=== PATIENT | female | born 1960 | race Caucasian/White ===

== ENCOUNTER 2017-09-10 19:18 | Emergency (ER) | payer BC, SELFPAY | END 2017-09-10 19:56 | disposition home or self-care (01) | PROVIDERS: Emergency Provider Nurse Practitioner; Visit Provider Nurse Practitioner | DX: A08.4 Viral intestinal infection, unspecified (principal); Z88.7 Allergy status to serum and vaccine | CPT/HCPCS: 87804; 99201 ==

== ENCOUNTER → 2019-06-24 13:28 | Outpatient (CLI) | payer BC, SELFPAY ==
--- NOTE | 2019-06-24 13:33 | MM_ITS ---
PROCEDURE: MM DIG MAMM BI DX W/CAD CLINICAL INDICATION: Dx [facility] Mammogram- abnormal mamm Palpable area left breast. Open sore under left breast. COMPARISON: US BREAST LT COMPLETE from 06/24/2019 US BREAST RT COMPLETE from 06/24/2019 TECHNIQUE: Standard images performed of both breasts along with bilateral spot compression views and bilateral breast ultrasound FINDINGS: There is average fibroglandular tissue. Right breast: The nipple is inverted. A band of density is noted extending from the central aspect of the right breast to the nipple with nipple inversion. There spot-compression views which obtained of this area and targeted ultrasound. There is no discrete mass evident and no sonographic abnormalities detected in the retroareolar region. There are some indeterminate clustered calcifications in the central aspect of the right breast slightly inferior. Biopsy of these is suggested as well as biopsy of the central area contiguous with the band of density connected to the nipple. Small nodes are present in the right axilla. Right breast ultrasound: No sonographic abnormalities detected in the region of the nipple inversion. Left breast: There is a spiculated mass the corresponding to the palpable abnormality in the 3 o'clock region of the left breast. This measures 2.7 x 2.4 by 2.7 cm and is highly suspicious for malignancy. In addition, there is a 12 mm nodule just superior to this larger lesion. This is well-circumscribed. This nodule is at the 1 o'clock position. There are suspicious calcifications in the superior aspect of the left breast just superior and anterior to the A4 mentioned nodule. There are rounded densities in the left axilla 1 which show some spiculations suspicious for neoplastic involvement of lymph nodes. This area measures 8 mm. Left breast ultrasound: In the floor o'clock region of the left breast there is a solid 2 x 2 cm mass just beneath the skin with hyper blood flow. This is isoechoic with some limited transmission of sound. In addition there is a 13 x 10 mm hypoechoic nodule at 12 o'clock corresponding to the rounded mammographic abnormality. This is round but show some decreased through transmission of sound and does not appear to represent a cyst. Biopsy of this nodule is suggested as well as the larger suspicious nodule. This is at 12 o'clock. This highly suspicious masses at 4 o'clock. IMPRESSION: On the left there is a highly suspicious mass at 4 o'clock at 2.7 cm very near the skin surface. Biopsy suggested. In addition, there is a 12 mm solid-appearing nodule at 12 o'clock. This could represent an intramammary lymph node with neoplastic involvement or 2nd neoplasm. In addition, there are suspicious calcifications in the 12 o'clock region of the left breast. There is also nipple retraction on the right with suspicious calcifications on the right. Biopsy recommended. BI-RAD Category: 5 Highly Suggestive Of Malignancy FOLLOW-UP: BIO Biopsy Recommended (A letter has been sent to the patient regarding results of the study.) Dictated by: Jaden Fry MD 06/26/2019 20:59 Electronically signed by Jaden Fry MD in [place] 06/26/2019 20:59
== END ==
PROVIDERS: PCP Nurse Practitioner Obstetrics & Gynecology; Visit Provider Nurse Practitioner Obstetrics & Gynecology
DX: R92.8 Other abnormal and inconclusive findings on diagnostic imaging of breast (principal); N63.20 Unspecified lump in the left breast, unspecified quadrant
CPT/HCPCS: 76641; 77066

== ENCOUNTER 2019-11-26 15:00 | Observation (INO) ==
--- NOTE | 2019-11-26 15:32 | Emergency Department Note ---
ED Disposition Clinical Impression: Dehydration, Severe sepsis, Hyponatremia, Intractable nausea and vomiting, Drug-induced nausea and vomiting, Status post chemotherapy Neutropenia Qualifiers: Neutropenia type: secondary to cancer chemotherapy Qualified Code(s): D70.1 - Agranulocytosis secondary to cancer chemotherapy; T45.1X5A - Adverse effect of antineoplastic and immunosuppressive drugs, initial encounter Leukopenia Qualifiers: Leukopenia type: neutropenia Neutropenia type: secondary to cancer chemotherapy Qualified Code(s): D70.1 - Agranulocytosis secondary to cancer chemotherapy; T45.1X5A - Adverse effect of antineoplastic and immunosuppressive drugs, initial encounter Disposition: Admitted As Inpatient Condition on Discharge: Fair Additional Instructions: Discussed with the DONALD Arias with Dr. Billings, regarding the patient and planned to get the patient admitted to the floor for leukopenia/neutropenia/severe sepsis with electrolyte imbalance due to persistent intractable nausea vomiting status post chemo. Referrals: Gregorio Billings MD [Primary Care Provider] - Time of Disposition: 17:19 - Critical Care Critical Care Time: Yes Attestation: On 11/26/19, the high probability of a clinically significant, sudden or life threatening deterioration of the following system(s) required my full and direct attention, intervention and personal management. The time I documented below is in addition to time spent performing reported procedures but includes the following listed in this critical care notation. Total Critical Care Time: 30 Vital system(s) involved:: Metabolic Failure, Renal Failure, Shock (Septic) My critical care processes included: Assessment & monitoring of V/S, Initial and Re-exams, Data Review/Interpretation, Coordinating Care, Medication Orders and management, Documentation Medical Decision Making - Wilmer Inquiry Pt receiving controlled substance: Yes Wilmer was queried for this patient: No Risks and benefits of using a controlled substance: were not discussed with pt by me Vital Signs: 11/26/19 15:14 Temperature 98.2 F Temperature Source Oral Pulse Rate [Left Radial] 139 H Respiratory Rate 18 Blood Pressure [Right Arm] 103/63 L Blood Pressure Mean [Right Arm] 76 Blood Pressure Position [Right Arm] Sitting 02 Sat by Pulse Oximetry 99 Oxygen Delivery Method Room Air - Lab Data Lab results reviewed: Yes: I reviewed the patient's lab results. Lab Results 11/26/19 15:30: WBC 1.5 L*, RBC 4.26, Hgb 12.4, Hct 35.9 L, MCV 84.1, MCH 29.1, MCHC 34.6, RDW 12.6, Plt Count 239, MPV 8.5, Neut % (Auto) 15.3 L, Lymph % (Auto) 55.9 H, [place] % (Auto) 26.8 H, Eos % (Auto) 0.2, Baso % (Auto) 1.7, Neut # (Auto) 0.2 L*, Lymph # (Auto) 0.8, [place] # (Auto) 0.4, Eos # (Auto) 0.0, Baso # (Auto) 0.0, Total Counted 100, Neutrophils % (Manual) 14 L, Lymphocytes % (Manual) 58 H, Atypical Lymphs % 10.0, Monocytes % (Manual) 18 H, Platelet Estimate Normal, RBC Morphology Normal 11/26/19 15:30: Sodium 128 L, Potassium 4.3, Chloride 93 L, Carbon Dioxide 23, Anion Gap 16.3 H, BUN 25 H, Creatinine 1.40 H, Estimated Creat Clear 45, Estimated GFR 38 L, Est GFR ( Amer) 46 L, Glucose 156 H, Calcium 9.1, Tot al Bilirubin 1.4 H, AST 29, ALT 52, Alkaline Phosphatase 93, Troponin I < 0.01, Total Protein 6.8, Albumin 3.8, Globulin 3.0, Albumin/Globulin Ratio 1.3 11/26/19 15:30: Urine Color Dk yellow, Urine Appearance Sl cloudy, Urine pH 5.0, Ur Specific [place] >= 1.030, Urine Protein 1+, Urine Glucose (UA) Negative, Urine Ketones Negative, Urine Blood Trace-i, Urine Nitrate Positive, Urine Bilirubin Negative, Urine Urobilinogen 0.2, Ur Leukocyte Esterase Negative, U rine RBC 3-5, Urine WBC 3-5, Ur Squamous Epith Cells 3-5, Ur Transition Epith Cell 3-5, Amorphous Sediment 2+, Urine Bacteria 1+, Hyaline Casts 3-5 11/26/19 15:30: Lactate 1.7 Result diagrams: 11/26/19 15:30 11/26/19 15:30 Orders (Tests/Meds): ED MEDICATIONS Generic Name Dose Route Start Last Admin Trade Name Freq PRN Reason Stop Dose Admin Sodium Chloride 1,000 mls @ 999 mls/hr 11/26/19 15:30 11/26/19 15:46 Sod Chlor 0.9% 1000ml Bag IV 11/26/19 16:30 999 mls/hr .Q1H1M MEME Administration Discontinued Medications Generic Name Dose Route Start Last Admin Trade Name Freq PRN Reason Stop Dose Admin Ondansetron HCl 4 mg 11/26/19 15:19 11/26/19 15:46 Zofran 4mg/2ml Vial IV 11/26/19 15:20 4 mg ONCE ONE Administration ORDERS Category Date Time Status XR abdomen min 2V Stat Exams 11/26/19 15:44 Taken Diarrhea 23 Panel, PCR Stat Lab 11/26/19 15:19 Ordered Troponin I Q3H Lab 11/26/19 19:00 Ordered Troponin I Q3H Lab 11/26/19 22:00 Ordered Blood Culture Stat Micro 11/26/19 15:35 Received - ECG Data Tracing #1 Sinus tachycardia with a heart rate of 127 bpm, normal P waves, normal [place] interval, nonspecific ST-T changes. - Physician Consults Physician Consulted: Dr. Billings/Juana Time: 17:10 Reason -: Admission Comment/Response: Discussed with the DONALD Arias with Dr. Billings, regarding the patient and planned to get the patient admitted to the floor for leuk openia/neutropenia/severe sepsis with electrolyte imbalance due to persistent intractable nausea vomiting status post chemo. - Reevaluation(s) Time: 17:15 Reevaluation #1: Patient has been stable throughout the course of stay in the ER. Plan to admit the patient to the floor for neutropenia/leukopenia/severe sepsis/electrolyte imbalance due to chemo. General Adult HPI - General Chief complaint: Nausea/Vomiting/Diarrhea Stated complaint: chemo treatment and feels bad. told her come t Time Seen by Provider: 11/26/19 15:32 Mode of Arrival: Ambulatory Limitations: No Limitations Description of Symptoms (Recalled from ER Triage Doc. by RN): TO ED PER [facility] CAR WITH C/O NAUSEA, VOMITING, DIARRHEA, ABD CRAMPING STARTING SATURDAY 11/18 AFTER RECEIVING CHEMO. PT WITH HX OF BREAST CA. THIS WAS PT'S FIRST CHEMO TX. PT DENIES FEVER, CHILLS. - History of Present Illness HPI narrative: 59-year-old female presents to the emergency department with chief complaint of having intractable nausea vomiting for the last 5 to 6 days. She states she has bilateral breast cancer and had recently had breast surgery done for the same. She has been on chemotherapy which she started on the of this month that is about 8 days ago. She received her first chemo 8 days ago and from the third day onwards she has been having nausea vomiting due to the same. She states she has been persistently vomiting for the last 4 to 5 days. It has made her weak and tired. Has not been able to keep anything down much. She vomited twice today and feels weak. No blood in the vomitus. Denies having any fever or chills. - Related Data Home Medications Medication Instructions Recorded Confirmed anastrozole 1 mg tablet mg PO DAILY tab 09/14/19 09/14/19 Previous Rx's Medication Instructions Recorded lisinopril 10 mg tablet 10 mg PO DAILY #90 tab 09/14/19 Allergies Allergy/AdvReac Type Severity Reaction Status Date / Time tetanus and diphtheria Allergy Unknown Verified 09/14/19 09:26 toxoids [TETANUS AND DIPHTHERIA TOXOIDS] [facility] History - Hepatitis A Screen Drug use history?: No High risk sexual behaviors?: No History of sexually transmitted infection?: No Currently employed?: No Childcare worker?: No Do you have indoor plumbing?: Yes Do you have electricity?: Yes Attestation statement:: This patient has been screened for Hepatitis A risk factors. I have reviewed the patient's past medical history: Yes Other Surgeries: Yes: Other Amputation: No Fractures: No Comment: full mouth extractions - Social History Smoking Status: Never smoker Alcohol Intake: never Substance Use Type: denies use Occupational Status: other Family Hx:: Cancer (mother had ovarian cancer) ROS Obtained: Yes All systems reviewed & no additional complaints Physical Exam - General General appearance: alert, in no apparent distress - Head Head exam: atraumatic, normocephalic, normal inspection - Eye Eye exam: Present: normal appearance, PERRL, EOMI - ENT ENT exam: Present: normal exam, normal oropharynx, mucous membranes moist, normal external ear exam - Neck Neck exam: Present: normal inspection, full ROM, trachea midline - Chest Chest inspection: Present: normal inspection, symmetric chest wall rise. Absent: tenderness - Respiratory Respiratory exam: Present: normal lung sounds bilaterally. Absent: respiratory distress - Cardiovascular Cardiovascular exam: Present: regular rate, normal rhythm. Absent: JVD - Abdominal Exam Abdominal exam: Present: soft, normal bowel sounds, other (Mild degree of questionable fecal matter palpable throughout the abdomen.). Absent: distention, tenderness, guarding - Extremities Exam Extremities exam: Present: normal inspection, full ROM, normal capillary refill. Absent: calf tenderness - Back Exam Back exam: Present: normal inspection. Absent: tenderness - Neurological Exam Neurological exam: Present: alert, oriented X3, CN II-XII intact - Psychiatric Psychiatric exam: Present: normal affect, normal mood - Skin Skin exam: Present: warm, dry, intact, normal color
[2019-11-26 15:39] LABS: Appearance,Urine SL CLOUDY (Clear); Blood, Urine TRACE-I (Negative); Color,Urine DK YELLOW (Yellow); Glucose,Urine (UA) Negative (Negative); Ketones,Urine Negative (Negative); Leukocyte Esterase,Urine Negative (Negative); Microscopic, Urine URINE MICROSCOPIC (MICROSCOPIC); Protein,Urine 1+ (Negative); Specific Gravity, Urine >= 1.030 (1.005-1.030); Urobilinogen,Urine 0.2 EU/dl (0.2)
[2019-11-26 15:44] LABS: Bilirubin,Urine Negative (Negative)
[2019-11-26 15:50] LABS: Chloride 93 mmol/L (98-107); Sodium 128 mmol/L (136-145)
[2019-11-26 15:52] LABS: Amorphous Sediment,Urine 2+ /lpf; Bacteria,Urine 1+ /lpf; Basophils % 1.7 % (0.1-2.0); Eosinophils % 0.2 % (0.1-12.0); Hematocrit 35.9 % (37.0-47.0); Hemoglobin 12.4 g/dL (12.2-16.2); Lymphocytes # 0.8 K/mm3 (0.7-4.5); Lymphocytes % 55.9 % (10-50); Mean Corpuscular HGB Conc 34.6 g/dL (31.8-35.4); Mean Corpuscular Volume 84.1 fl (81-99); Mean Platelet Volume 8.5 fl (7.4-10.4); Monocytes # 0.4 K/mm3 (0.1-1.0); Monocytes % 26.8 % (1.7-9.3); Neutrophils # 0.2 K/mm3 (1.8-7.8); Neutrophils % 15.3 % (37.0-80.0); Platelet Count 239 K/mm3 (142-424); Red Blood Count 4.26 M/mm3 (4.20-5.40); Red Cell Distribution Width 12.6 % (11.5-17.5)
[2019-11-26 15:53] LABS: Alanine Aminotransferase 52 U/L (12-78); Albumin Level 3.8 g/dl (3.5-5.0); Albumin/Globulin Ratio 1.3 (1.1-1.8); Alkaline Phosphatase 93 U/L (38-126); Anion Gap 16.3 mEq/L (5-15); Aspartate Amino Transferase 29 U/L (14-36); Bilirubin,Total 1.4 mg/dl (0.2-1.3); Blood Urea Nitrogen 25 mg/dl (7-17); Carbon Dioxide 23 mmol/L (22.0-30.0); Total Protein,Serum 6.8 g/dl (6.3-8.2)
[2019-11-26 15:54] LABS: Calcium 9.1 mg/dl (8.4-10.2); Glucose 156 mg/dl (74-100); White Blood Count 1.5 K/mm3 (4.8-10.8)
[2019-11-26 16:10] LABS: Lymphocytes % 58 % (10-50); Monocytes % 18 % (2-9); Neutrophils % 14 % (42-76); RBC Morphology Normal; Total Cells Counted 100
--- NOTE | 2019-11-26 17:35 | History & Physical Report ---
*Admission Date: 11/26/19 *Chief complaint: uti *History of present illness: 59-year-old female presents to the emergency department with chief complaint of having intractable nausea vomiting for the last 5 to 6 days. 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 She has been on chemotherapy which she started on the of this month that is about 8 days ago. She received her first chemo 8 days ago and from the third day onwards she has been having nausea vomiting due to the same. She states she has been persistently vomiting for the last 4 to 5 days. Pt admitted for uti, low wbc and sepsis [facility] History I have reviewed the patient's past medical history: Yes *Have you ever received a pneumonia vaccine?: No *Have you received a flu vaccine this season?: No Other Surgeries: Yes: Other Amputation: No Fractures: No - *Social History Smoking Status: Never smoker Alcohol Intake: never Substance Use Type: denies use *Occupational Status:: other *Travel in the last 8 weeks: None Family Hx:: Cancer (mother had ovarian cancer) Review of Systems - Constitutional Reports body ache(s), Reports chills, Reports fatigue, Reports fever(s) - Eyes Denies itchy eyes - ENT Denies sinus pressure - *Cardiovascular Denies chest pain with activity - *Respiratory Denies shortness of breath - *Gastrointestinal Denies heartburn - *Genitourinary Denies absent period - *Musculoskeletal Denies muscle cramps - Integumentary/Breasts Denies unusual bruising, Denies wounds - *Neurologic Denies abnormal movements - Psychiatric Denies anxiety - Endocrine Denies flushing - Hematologic/Lymphatic Denies enlarged lymph nodes - Allergic/Immunologic Denies lip swelling Meds Home Medications Medication Instructions Recorded Confirmed Type anastrozole 1 mg tablet 1 mg PO DAILY tab 09/14/19 11/26/19 History lisinopriL [Prinivil 10mg Tablet] 10 mg PO DAILY 11/26/19 11/26/19 History Allergies Allergy/AdvReac Type Severity Reaction Status Date / Time tetanus and diphtheria Allergy Unknown Verified 09/14/19 09:26 toxoids [TETANUS AND DIPHTHERIA TOXOIDS] Exam Vital signs and Labs for Last 24 Hours: Temp Pulse Resp BP Pulse Ox 98.2 F 139 H 18 103/63 L 99 11/26/19 15:14 11/26/19 15:14 11/26/19 15:14 11/26/19 15:14 11/26/19 15:14 Laboratory Results - last 24 hr 11/26/19 15:30: WBC 1.5 L*, RBC 4.26, Hgb 12.4, Hct 35.9 L, MCV 84.1, MCH 29.1, MCHC 34.6, RDW 12.6, Plt Count 239, MPV 8.5, Neut % (Auto) 15.3 L, Lymph % (Auto) 55.9 H, [place] % (Auto) 26.8 H, Eos % (Auto) 0.2, Baso % (Auto) 1.7, Neut # (Auto) 0.2 L*, Lymph # (Auto) 0.8, [place] # (Auto) 0.4, Eos # (Auto) 0.0, Baso # (Auto) 0.0, Total Counted 100, Neutrophils % (Manual) 14 L, Lymphocytes % (Manual) 58 H, Atypical Lymphs % 10.0, Monocytes % (Manual) 18 H, Platelet Estimate Normal, RBC Morphology Normal 11/26/19 15:30: Sodium 128 L, Potassium 4.3, Chloride 93 L, Carbon Dioxide 23, Anion Gap 16.3 H, BUN 25 H, Creatinine 1.40 H, Estimated Creat Clear 45, Estimated GFR 38 L, Est GFR ( Amer) 46 L, Glucose 156 H, Calcium 9.1, Total Bilirubin 1.4 H, AST 29, ALT 52, Alkaline Phosphatase 93, Troponin I < 0.01, Total Protein 6.8, Albumin 3.8, Globulin 3.0, Albumin/Globulin Ratio 1.3 11/26/19 15:30: Urine Color Dk yellow, Urine Appearance Sl cloudy, Urine pH 5.0, Ur Specific [place] >= 1.030, Urine Protein 1+, Urine Glucose (UA) Negative, Urine Ketones Negative, Urine Blood Trace-i, Urine Nitrate Positive, Urine Bilirubin Negative, Urine Urobilinogen 0.2, Ur Leukocyte Esterase Negative, Urine RBC 3-5, Urine WBC 3-5, Ur Squamous Epith Cells 3-5, Ur Transition Epith Cell 3-5, Amorphous Sediment 2+, Urine Bacteria 1+, Hyaline Casts 3-5 11/26/19 15:30: Lactate 1.7 I & O for Last 24 hours: Intake & Output 11/24/19 11/25/19 11/26/19 11/27/19 11:59 11:59 11:59 11:59 Weight 150 lb - *Routine HEENT Exam Head: Present: normocephalic Eye: Present: PERRL ENT: Present: mucous membranes moist - *Routine Neck Exam Present: supple. Absent: lymphadenopathy - Routine Chest/Breast/Axilla Exam Comments: carlito masectomy healing incisions - *Routine Respiratory Exam Present: CTA bilaterally - *Routine Cardiovascular Exam Present: RRR - *Routine Abdominal Exam Present: soft, normoactive bowel sounds. Absent: tenderness - *Routine Extremities Exam Absent: cyanosis, clubbing, edema - *Routine Skin Exam Present: warm. Absent: rash - *Routine Neurological Exam Present: alert, oriented X3 Assessment and Plan (1) Dehydration Current visit: Yes Status: Acute Category: Medical Code(s): E86.0 - Dehydration (2) Drug-induced nausea and vomiting Current visit: Yes Status: Acute Category: Medical Code(s): R11.2 - Nausea with vomiting, unspecified; T50.905A - Adverse effect of unspecified drugs, medicaments and biological substances, initial encounter (3) Leukopenia Current visit: Yes Status: Acute Qualifiers: Leukopenia type: neutropenia Neutropenia type: secondary to cancer chemotherapy Qualified Code(s): D70.1 - Agranulocytosis secondary to cancer chemotherapy; T45.1X5A - Adverse effect of antineoplastic and immunosuppressive drugs, initial encounter Category: Medical Code(s): D72.819 - Decreased white blood cell count, unspecified (4) Status post chemotherapy Current visit: Yes Status: Acute Category: Surgical Code(s): Z92.21 - Personal history of antineoplastic chemotherapy (5) Breast cancer, left breast Current visit: No Status: Chronic Qualifiers: Breast location: unspecified site of breast Estrogen receptor status: unspecified Patient sex: female Qualified Code(s): C50.912 - Malignant neoplasm of unspecified site of left female breast Category: Medical Code(s): C50.912 - Malignant neoplasm of unspecified site of left female breast (6) UTI (urinary tract infection) Current visit: Yes Status: Acute Category: Medical Code(s): N39.0 - Urinary tract infection, site not specified - Assessment and plan all Dx Assessment and Plan for all problems:: Dr samuels will round later today all orders per abril
--- NOTE | 2019-11-26 19:05 | Electrocardiograph Report ---
APPROVED REPORT Exam: Resting ECG HR:127 bpm ECG Measurements Heart Rate 127 AXES NE 138 P 50 QRSd 110 QRS 92 QT 324 T25 QTc 470 <Conclusion> Sinus tachycardia Rightward axis Borderline ECG Electronically signed by : Adam Ray, 11/26/2019 19:05:09
[2019-11-27 05:54] LABS: Eosinophils % 0.6 % (0.1-12.0); Lymphocytes # 0.7 K/mm3 (0.7-4.5); Mean Corpuscular HGB Conc 34.3 g/dL (31.8-35.4); Mean Corpuscular Volume 85.2 fl (81-99); Mean Platelet Volume 8.1 fl (7.4-10.4); Monocytes # 0.4 K/mm3 (0.1-1.0); Monocytes % 26.6 % (1.7-9.3); Neutrophils # 0.4 K/mm3 (1.8-7.8); Neutrophils % 26.8 % (37.0-80.0); Platelet Count 210 K/mm3 (142-424); Red Blood Count 3.41 M/mm3 (4.20-5.40); Red Cell Distribution Width 12.9 % (11.5-17.5)
[2019-11-27 05:55] LABS: Hematocrit 29.1 % (37.0-47.0); White Blood Count 1.5 K/mm3 (4.8-10.8)
[2019-11-27 06:10] LABS: Anion Gap 11.7 mEq/L (5-15)
[2019-11-27 06:11] LABS: Calcium 7.9 mg/dl (8.4-10.2)
[2019-11-27 06:19] LABS: Lymphocytes % 86 % (10-50); Monocytes % 8 % (2-9); RBC Morphology Normal; Rouleaux 2+; Total Cells Counted 50
--- NOTE | 2019-11-27 08:47 | Progress Note ---
Internal Medicine - PN: Subj *Date: 11/28/19 *Time: 06:45 Interval history: doing better -still with low wbc - cultures pending Exam Vital signs and Labs for Last 24 Hours: Temp Pulse Resp BP Pulse Ox 98.1 F 105 H 18 151/70 H 98 11/27/19 07:56 11/27/19 07:56 11/27/19 07:56 11/27/19 07:56 11/27/19 07:56 Laboratory Results - last 24 hr 11/26/19 15:30: WBC 1.5 L*, RBC 4.26, Hgb 12.4, Hct 35.9 L, MCV 84.1, MCH 29.1, MCHC 34.6, RDW 12.6, Plt Count 239, MPV 8.5, Neut % (Auto) 15.3 L, Lymph % (Auto) 55.9 H, [place] % (Auto) 26.8 H, Eos % (Auto) 0.2, Baso % (Auto) 1.7, Neut # (Auto) 0.2 L*, Lymph # (Auto) 0.8, [place] # (Auto) 0.4, Eos # (Auto) 0.0, Baso # (Auto) 0.0, Total Counted 100, Neutrophils % (Manual) 14 L, Lymphocytes % (Manual) 58 H, Atypical Lymphs % 10.0, Monocytes % (Manual) 18 H, Platelet E stimate Normal, RBC Morphology Normal 11/26/19 15:30: Sodium 128 L, Potassium 4.3, Chloride 93 L, Carbon Dioxide 23, Anion Gap 16.3 H, BUN 25 H, Creatinine 1.40 H, Estimated Creat Clear 45, Estimated GFR 38 L, Est GFR ( Amer) 46 L, Glucose 156 H, Calcium 9.1, Total Bilirubin 1.4 H, AST 29, ALT 52, Alkaline Phosphatase 93, Troponin I < 0.01, Total Protein 6.8, Albumin 3.8, Globulin 3.0, Albumin/Globulin Ratio 1.3 11/26/19 15:30: Urine Color Dk yellow, Urine Appearance Sl cloudy, Urine pH 5.0, Ur Specific [place] >= 1.030, Urine Protein 1+, Urine Glucose (UA) Negative, Urine Ketones Negative, Urine Blood Trace-i, Urine Nitrate Positive, Urine Bilirubin Negative, Urine Urobilinogen 0.2, Ur Leukocyte Esterase Negative, Urine RBC 3-5, Urine WBC 3-5, Ur Squamous Epith Cells 3-5, Ur Transition Epith Cell 3-5, Amorphous Sediment 2+, Urine Bacteria 1+, Hyaline Casts 3-5 11/26/19 15:30: Lactate 1.7 11/26/19 21:12: Stl Aeromonas (PCR) Not detected, Stl C. cayetanensis PCR Not detected, Stool Rotavirus (PCR) Not detected, Stl Adenov F 40/41 PCR Not detected, Stool Astrovirus (PCR) Not detected, Stool Campylobacter PCR Not detected, Stl C.difficile Tox PCR Not detected, Stool Cryptosporidium PCR Not detected, Stl E.coli Shiga Tox PCR Not detected, Stool E coli O157 PCR Not detected, Stl Enterotoxigenic E PCR Not detected, Stool EPEC (PCR) Not detected, Stool EAEC (PCR) Not detected, Stl E. histolytica PCR Not detected, Stool Giardia Lamblia PCR Not detected, Stool Salmonella PCR Not detected, Stool Sapovirus (PCR) Not detected, Stl P. shigelloides PCR Not detected, Stl Shigella/EIEC PCR Not detected, St Y.enterocolitica PCR Not detected, Stool Vibrio (PCR) Not detected, Stl Vibrio cholerae PCR Not detected, Stl Norovirus GI/GII PCR Not detected 11/27/19 05:35: WBC 1.5 L*, RBC 3.41 L, Hgb 10.0 L D, Hct 29.1 L, MCV 85.2, MCH 29.2, MCHC 34.3, RDW 12.9, Plt Count 210, MPV 8.1, Neut % (Auto) 26.8 L, Lymph % (Auto) 46.0, [place] % (Auto) 26.6 H, Eos % (Auto) 0.6, Baso % (Auto) 0.0 L, Neut # (Auto) 0.4 L*, Lymph # (Auto) 0.7, [place] # (Auto) 0.4, Eos # (Auto) 0.0, Baso # (Auto) 0.0, Total Counted 50, Band Neutrophils % 6.0, Lymphocytes % (Manual) 86 H, Monocytes % (Manual) 8, Platelet Estimate Normal, RBC Morphology Normal, Rouleaux 2+ 11/27/19 05:35: Sodium 129 L, Potassium 3.7, Chloride 101, Carbon Dioxide 20 L, Anion Gap 11.7, BUN 21 H, Creatinine 0.90 D, Estimated Creat Clear 69, Estimated GFR 64, Est GFR ( Amer) 77 D, Glucose 119 H D, Calcium 7.9 L D I & O for Last 24 hours: Intake & Output 11/24/19 11/25/19 11/26/19 11/27/19 11:59 11:59 11:59 11:59 Intake Total 2296 / 229 Output Total 200 / 200 Balance 2095 Weight 162 lb 4 oz - Constitutional no acute distress - *Routine HEENT Exam Head: Present: normocephalic Eye: Present: EOMI, PERRL. Absent: conjunctival icterus ENT: Present: mucous membranes dry - *Routine Neck Exam Present: supple. Absent: JVD - *Routine Respiratory Exam Present: CTA bilaterally - *Routine Cardiovascular Exam Present: RRR. Absent: murmur - *Routine Abdominal Exam Present: soft - *Routine Extremities Exam Absent: calf tenderness - *Routine Skin Exam Present: intact - *Routine Neurological Exam Present: alert, oriented X3, CN II-XII intact - Routine Psychiatric Exam Present: normal affect Assessment and Plan (1) Neutropenia Current visit: Yes Status: Acute Qualifiers: Neutropenia type: secondary to cancer chemotherapy Qualified Code(s): D70.1 - Agranulocytosis secondary to cancer chemotherapy; T45.1X5A - Adverse effect of antineoplastic and immunosuppressive drugs, initial encounter Category: Medical Code(s): D70.9 - Neutropenia, unspecified
--- NOTE | 2019-11-27 08:50 | Pharmacy Consult Notes ---
[facility] Pharmacy VTE Monitoring - Patient Demographics Admission date: 11/26/19 Report Date: 11/27/19 Time: 08:50 Allergies/Adverse Reactions: Patient Allergies tetanus and diphtheria toxoids [TETANUS AND DIPHTHERIA TOXOIDS] Allergy (Unknown, Verified 09/14/19 09:26) Height: 1.65 m Weight: 73.595 kg Patient Problems: Current Active Problems Dehydration (Acute) Severe sepsis (Acute) Neutropenia (Acute) Leukopenia (Acute) Hyponatremia (Acute) Intractable nausea and vomiting (Acute) Drug-induced nausea and vomiting (Acute) Status post chemotherapy (Acute) - VTE Risk Labs: VTE Related Lab Results Hgb 10.0 g/dL (12.2-16.2) L D 11/27/19 05:35 Hct 29.1 % (37.0-47.0) L 11/27/19 05:35 Plt Count 210 K/mm3 (142-424) 11/27/19 05:35 BUN 21 mg/dl (7-17) H 11/27/19 05:35 Creatinine 0.90 mg/dl (0.52-1.04) D 11/27/19 05:35 Estimated Creat Clear 69 mL/min (50-200) 11/27/19 05:35 Was VTE Risk Assessment Performed: Yes VTE Score: 2 VTE Risk Level: Very Low Risk - Prophylaxis VTE Prophylaxis Ordered?: Yes Types of VTE Prophylaxis: TEDS Knee High Location of Applied Device: Bilateral Lower Extremeties
[2019-11-28 08:36] LABS: Basophils % 0.4 % (0.1-2.0); Eosinophils % 0.2 % (0.1-12.0); Mean Corpuscular HGB Conc 33.2 g/dL (31.8-35.4); Mean Corpuscular Volume 85.6 fl (81-99); Mean Platelet Volume 7.7 fl (7.4-10.4); Monocytes # 0.2 K/mm3 (0.1-1.0); Monocytes % 5.7 % (1.7-9.3); Neutrophils # 1.7 K/mm3 (1.8-7.8); Neutrophils % 57.8 % (37.0-80.0); Platelet Count 245 K/mm3 (142-424); Red Cell Distribution Width 12.7 % (11.5-17.5); White Blood Count 2.9 K/mm3 (4.8-10.8)
--- NOTE | 2019-11-28 08:58 | Progress Note ---
Internal Medicine - PN: Subj *Date: 11/28/19 *Time: 08:55 Interval history: pt sitting up in bed states she is feeling better. pt states at 2 am she was seeing clowns and she got out of bed. Pt states she is feeling better now and she does not see clowns now. Exam Vital signs and Labs for Last 24 Hours: Temp Pulse Resp BP Pulse Ox 97.5 F L 91 H 18 141/70 H 100 11/28/19 08:00 11/28/19 08:00 11/28/19 08:00 11/28/19 08:00 11/28/19 08:00 Laboratory Results - last 24 hr 11/28/19 08:26: WBC 2.9 L D, RBC 3.50 L, Hgb 10.0 L, Hct 30.0 L, MCV 85.6, MCH 28.5, MCHC 33.2, RDW 12.7, Plt Count 245, MPV 7.7, Neut % (Auto) 57.8, Lymph % (Auto) 36.0, [place] % (Auto) 5.7, Eos % (Auto) 0.2, Baso % (Auto) 0.4, Neut # (Auto) 1.7 L, Lymph # (Auto) 1.0, [place] # (Auto) 0.2, Eos # (Auto) 0.0, Baso # (Auto) 0.0 I & O for Last 24 hours: Intake & Output 11/25/19 11/26/19 11/27/19 11/28/19 11:59 11:59 11:59 11:59 Intake Total 2296 / 2296 3525 / 3525 Output Total 200 / 200 1500 / 1500 Balance 2095 / 2095 Weight 162 lb 4 oz 163 lb 1 oz - Constitutional no acute distress - *Routine HEENT Exam Head: Present: normocephalic Eye: Present: PERRL ENT: Present: mucous membranes moist - *Routine Neck Exam Present: supple. Absent: lymphadenopathy - *Routine Respiratory Exam Present: CTA bilaterally - *Routine Cardiovascular Exam Present: RRR - *Routine Abdominal Exam Present: soft, normoactive bowel sounds. Absent: tenderness - *Routine Extremities Exam Present: normal capillary refill. Absent: cyanosis, clubbing, edema - *Routine Skin Exam Present: warm. Absent: rash - *Routine Neurological Exam Present: alert, oriented X3 - Routine Psychiatric Exam Present: normal affect Assessment and Plan (1) Neutropenia Current visit: Yes Status: Acute Qualifiers: Neutropenia type: secondary to cancer chemotherapy Qualified Code(s): D70.1 - Agranulocytosis secondary to cancer chemotherapy; T45.1X5A - Adverse effect of antineoplastic and immunosuppressive drugs, initial encounter Category: Medical Code(s): D70.9 - Neutropenia, unspecified (2) UTI (urinary tract infection) Current visit: Yes Status: Acute Category: Medical Code(s): N39.0 - Urinary tract infection, site not specified (3) Breast cancer, left breast Current visit: No Status: Chronic Qualifiers: Breast location: unspecified site of breast Estrogen receptor status: unspecified Patient sex: female Qualified Code(s): C50.912 - Malignant kaia plasm of unspecified site of left female breast Category: Medical Code(s): C50.912 - Malignant neoplasm of unspecified site of left female breast - Assessment and plan all Dx Assessment and Plan for all problems:: waiting cx results continue plan of care will speak to oncology after cx resulted. rounded with dr samuels all orders per abril
[2019-11-29 05:58] LABS: Basophils % 0.5 % (0.1-2.0); Eosinophils % 0.2 % (0.1-12.0); Hemoglobin 9.6 g/dL (12.2-16.2); Lymphocytes # 1.1 K/mm3 (0.7-4.5); Lymphocytes % 27.5 % (10-50); Mean Corpuscular HGB Conc 33.2 g/dL (31.8-35.4); Mean Corpuscular Volume 87.8 fl (81-99); Mean Platelet Volume 9.3 fl (7.4-10.4); Monocytes # 0.2 K/mm3 (0.1-1.0); Neutrophils # 2.5 K/mm3 (1.8-7.8); Neutrophils % 65.8 % (37.0-80.0); Platelet Count 264 K/mm3 (142-424); Red Cell Distribution Width 12.9 % (11.5-17.5); White Blood Count 3.8 K/mm3 (4.8-10.8)
[2019-11-29 06:06] LABS: Anion Gap 10.2 mEq/L (5-15); Calcium 8.4 mg/dl (8.4-10.2)
--- NOTE | 2019-11-29 08:59 | Discharge Summary ---
General - General Admission date:: 11/26/19 Discharge date: 11/29/19 HPI HPI: 59-year-old female patient sitting up in bed resting quietly, discussed discharge home today she is agreeable to this. 59-year-old female presents to the emergency department with chief complaint of having intractable nausea vomiting for the last 5 to 6 days. 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 She has been on chemotherapy which she started on the of this month that is about 8 days ago. She received her first chemo 8 days ago and from the third day onwards she has been having nausea vomiting due to the same. She states she has been persistently vomiting for the last 4 to 5 days. Pt admitted for uti, low wbc and sepsis Hospital Course Hospital Course: 59-year-old female presents to the emergency department with chief complaint of having intractable nausea vomiting for the last 5 to 6 days. 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 She has been on chemotherapy which she started on the of this month that is about 8 days ago. She received her first chemo 8 days ago and from the third day onwards she has been having nausea vomiting due to the same. She states she has been persistently vomiting for the last 4 to 5 days. Pt admitted for uti, low wbc and sepsis Abd CT: IMPRESSION: Possible colonic wall thickening. CT may provide further evaluation if clinically warranted otherwise negative Dictated by: Dr. Fry, Blood cultures negative x2, urine culture was negative WBC on admission was 1.5 today 3.8. During her stay she is received Azactam and cefepime IV. She is tolerating her regular diet Objective Vital signs: Temp Pulse Resp BP Pulse Ox 98.3 F 92 H 20 154/78 H 99 11/29/19 08:00 11/29/19 08:00 11/29/19 08:00 11/29/19 08:00 11/29/19 08:00 no acute distress - *Routine HEENT Exam Head: Present: normocephalic, tenderness of temporal artery Eye: Present: EOMI. Absent: conjunctival icterus, periorbital tenderness ENT: Present: mucous membranes moist. Absent: sinus tenderness - *Routine Neck Exam Present: supple, full ROM. Absent: JVD - *Routine Respiratory Exam Present: CTA bilaterally. Absent: accessory muscle use - *Routine Cardiovascular Exam Present: RRR - *Routine Abdominal Exam Present: soft, normoactive bowel sounds. Absent: tenderness, firm - *Routine Extremities Exam Present: full ROM, pulses intact. Absent: cyanosis, calf tenderness - Routine Back/Spine/Pelvis Exam Back/Spine: Present: full ROM. Absent: CVA tenderness - *Routine Skin Exam Present: intact, warm. Absent: cyanosis, erythema - *Routine Neurological Exam Present: alert, oriented X3. Absent: plantar reflex, altered mental status - Routine Psychiatric Exam Present: normal affect, normal thought process. Absent: suicidal ideation, tactile hallucinations Results Labs on day of discharge: Labs from last 24 hours 11/29/19 11/29/19 05:47 05:47 WBC 3.8 L D RBC 3.30 L Hgb 9.6 L Hct 29.0 L MCV 87.8 MCH 29.2 MCHC 33.2 RDW 12.9 Plt Count 264 MPV 9.3 Neut % (Auto) 65.8 Lymph % (Auto) 27.5 [place] % (Auto) 6.0 Eos % (Auto) 0.2 Baso % (Auto) 0.5 Neut # (Auto) 2.5 Lymph # (Auto) 1.1 [place] # (Auto) 0.2 Eos # (Auto) 0.0 Baso # (Auto) 0.0 Sodium 137 Potassium 3.2 L Chloride 105 Carbon Dioxide 25 D Anion Gap 10.2 BUN 11 D Creatinine 0.60 D Estimated Creat Clear 69 Estimated GFR 102 Est GFR ( Amer) 123 D Glucose 95 Calcium 8.4 Preliminary micro results at discharge 11/26/19 15:35 Blood Culture - Preliminary Blood NO GROWTH AFTER 48 HOURS 11/26/19 15:35 Blood Culture - Preliminary Blood NO GROWTH AFTER 48 HOURS - Additional Comments Rounded with Dr. Billings all orders per Dr. Billings 1. We will discharge home today 2. Levaquin 500 mg daily x4 days 3. Follow-up with oncology DS: Diagnosis - Discharge Diagnosis (1) Neutropenia Status: Acute (2) UTI (urinary tract infection) Status: Acute (3) Breast cancer, left breast Status: Chronic Discharge Plan - Patient Discharge Instructions ACTIVITY: Continue current activity DIET: continue same diet Patient Instructions: Coping with Nausea and Vomiting From Chemotherapy, DI for Dehydration -- Adult, DI for Urinary Tract Infection (UTI), DI for Neutropenia - Follow up Plan Follow up with: Anthony Blandon APRN [Advanced Practice Nurse] - Disposition: Home, Self-[facility] Medications: Home Medications Medication Instructions Recorded Confirmed Type anastrozole 1 mg tablet 1 mg PO DAILY tab 09/14/19 11/26/19 History lisinopriL [Prinivil 10mg Tablet] 10 mg PO DAILY 11/26/19 11/26/19 History levoFLOXacin [Levaquin 500mg 500 mg PO DAILY 4 Days #4 tab 11/29/19 Rx tab] Prescriptions/Medication Reconciliation: New levoFLOXacin [Levaquin 500mg tab] 500 mg PO DAILY 4 Days #4 tab Continued anastrozole 1 mg tablet 1 mg PO DAILY tab lisinopriL [Prinivil 10mg Tablet] 10 mg PO DAILY - Problem Reconciliation Problems Reviewed?: Yes
== END 2019-11-29 13:15 | disposition home or self-care (01) ==
LOC: ER 15:00 → 2ND 15:00
PROVIDERS: ADMIT Emergency Medicine; ATTEND Emergency Medicine
DX: E86.0 Dehydration; N39.0 Urinary tract infection, site not specified; D70.1 Agranulocytosis secondary to cancer chemotherapy; R11.2 Nausea with vomiting, unspecified; T45.1X5A Adverse effect of antineoplastic and immunosuppressive drugs, initial encounter; Z79.899 Other long term (current) drug therapy; Z88.7 Allergy status to serum and vaccine; C50.912 Malignant neoplasm of unspecified site of left female breast
CPT/HCPCS: 36415; 74019; 74020; 80048; 80053; 81001; 83605; 84484; 85007; 85025; 87040; 87086; 87507; 93005; 96365; 96367; 96375; 99283; G0378; J1642; J2405